=== PATIENT | female | born 1970 | race Caucasian/White ===

== ENCOUNTER 2018-11-12 17:44 | Emergency (ER) | payer BC ==
[~2018-11-12] VITALS: Wt 75.0 kg
[~2018-11-12 17:44] MED LIST: CIPR500T4 PO; DICY10CA40 PO; ELEC100080 PO; IBUP-1542 PO
[2018-11-12 17:51] VITALS: BP 112/56; PULSE 78; RESP 18
[2018-11-12] MEDS ORDERED: KETOROLAC 30 MG INJ IM STA (20:12)
--- NOTE | 2018-11-12 20:24 | ERD ---
ER Documentation Chief Complaint Chief Complaint SORE THROAT X 1 WEEK HPI This is a 48-year-old female patient who presents to the emergency room with complaint of pain in right shoulder and sore throat. Patient states she had a bout of "anger" on Thursday and since then has had pain in her arm and throat. Denies physical altercation, denies hitting anything, no shortness of breath, no chest pain, no fever, no dysphagia, patient has not taken any ibuprofen or medications for her pain. No medical history. History and physical exam and plan of care discussion performed via educational interpreter services ROS All systems reviewed and are negative except as per history of present illness. Medications Home Meds Active Scripts Cyclobenzaprine Hcl* (Cyclobenzaprine Hcl*) 10 Mg Tablet, 10 MG PO Q8 PRN for MUSCLE SPASMS, #5 TAB Prov:JACINTO COTTON NP 11/12/18 Ibuprofen* (Motrin*) 600 Mg Tab, 600 MG PO Q6 for pain, #30 TAB Prov:JACINTO COTTON NP 11/12/18 Ibuprofen* (Motrin*) 600 Mg Tab, 600 MG PO Q6, #30 TAB Prov:ADELA GIBSON 12/16/16 Electrolyte,Oral (Pedialyte) 1,000 Ml Solution, 100 ML PO Q6 PRN for dehydration for 3 Days, ML Prov:ADELA GIBSON 05/12/15 Dicyclomine HCl (Dicyclomine HCl) 10 Mg Capsule, 10 MG PO QID for 5 Days, CAP Prov:ADELA GIBSON 05/12/15 Ciprofloxacin Hcl* (Ciprofloxacin Hcl*) 500 Mg Tablet, 500 MG PO BID for 7 Days, TAB Prov:ADELA GIBSON 05/12/15 Allergies Allergies: Coded Allergies: No Known Allergy (Unverified , 05/12/15) PMhx/Soc History of Surgery: No Anesthesia Reaction: No Hx Neurological Disorder: No Hx Respiratory Disorders: No Hx Cardiac Disorders: Yes (HTN) Hx Psychiatric Problems: No Hx Miscellaneous Medical Probl: No Hx Alcohol Use: No Hx Substance Use: No Hx Tobacco Use: No Smoking Status: Never smoker Physical Exam Vitals Vital Signs Date Temp Pulse Resp B/P (MAP) Pulse Ox O2 O2 Flow FiO2 Time Delivery Rate 11/12/18 98.1 78 18 112/56 99 17:51 (74) Physical Exam Const: No acute distress Head: Atraumatic Eyes: Normal Conjunctiva, PERRL ENT: Normal External Ears, Nose and Mouth. Pharynx pink, no lesions, no exudate Neck: Full range of motion. No cervical spinal tenderness, no deformity, no step off. No lymphadenopathy or thyromegaly. Resp: Clear to auscultation bilaterally, no wheezing, no rhonchi, no rales Cardio: Regular rate and rhythm, no murmurs Abd: Soft, non tender, non distended. Normal bowel sounds Skin: No petechiae or rashes Back: No midline or flank tenderness, no spinal tenderness, no deformity, no step-offs Ext: No cyanosis, or edema, bilateral upper extremities with full range of motion, no weakness Neur: Awake and alert, equal strong parquetry floor layer, sensation intact bilaterally, CNII- XII intact Psych: Normal Mood and Affect Results 24 hrs Current Medications Medications Dose Sig/Vero Start Time Status Last (Trade) Ordered Route PRN Stop Time Admin Dose Reason Admin Ketorolac 30 mg ONCE STAT 11/12/18 DC 11/12/18 Tromethamine IM 20:12 20:37 (Toradol) 11/12/18 20:14 Procedures/MDM This is a 48-year-old female patient who presents to the emergency room with complaint of pain in right shoulder and right lower back. Patient's spine symptoms have stabilized while they have been evaluated in the department and are appropriate for outpatient work up. No evidence of cauda equina, cord compression, infiltrative, or infectious etiology. Departure Diagnosis: Primary Impression: Neck strain Condition: Stable Patient Instructions: Back And Neck Pain, General Referrals: [facility] Additional Instructions: Thank you very much for allowing us to participate in your care. Your health and safety is our top priority at [facility]. Call your primary care doctor TOMORROW for an appointment during the next 2-4 days and bring all the information and medications prescribed. Have prescriptions filled and follow precisely the directions on the label. If the symptoms get worse and your provider is unavailable, return to the Emergency Department immediately. JACINTO COTTON NP Nov 12, 2018 20:24
[2018-11-12] MEDS ORDERED: CYCL10TA7 PO (20:26)
[2018-11-12] MEDS ORDERED: IBUP-1542 PO (20:26)
== END 2018-11-12 22:05 | disposition home or self-care (01) ==
LOC: FTE 17:44
DX: S16.1XXA Strain of muscle, fascia and tendon at neck level, initial encounter (principal); I10 Essential (primary) hypertension; X58.XXXA Exposure to other specified factors, initial encounter; Y92.9 Unspecified place or not applicable
CPT/HCPCS: 96372; J1885; Z7502